=== PATIENT | male | born 1990 | race African-American/Black ===

== ENCOUNTER 2016-07-19 13:47 | Emergency (ER) | payer MEDICAID, OTHER ==
[~2016-07-19] VITALS: Ht 175.3 cm; Wt 85.3 kg
[2016-07-19 14:17] VITALS: BP 129/81
== END 2016-07-19 15:31 | disposition home or self-care (01) ==
LOC: ER 13:47
DX: N34.2 Other urethritis (principal)

== ENCOUNTER 2020-03-27 10:21 | Emergency (ER) | payer MEDICAID, OTHER ==
[~2020-03-27] VITALS: Ht 175.3 cm; Wt 79.8 kg
[2020-03-27 11:24] VITALS: BP 130/97
[2020-03-27] MEDS ORDERED: IBUPROFEN 800 MG TAB PO ONE (11:30)
== END 2020-03-27 12:45 | disposition home or self-care (01) ==
LOC: ER 10:21
DX: M54.2 Cervicalgia (principal); V43.52XA Car driver injured in collision with other type car in traffic accident, initial encounter; Y93.89 Activity, other specified; Y92.488 Other paved roadways as the place of occurrence of the external cause; Y99.8 Other external cause status
CPT/HCPCS: 72040; 72070; 72100

== ENCOUNTER 2020-10-26 13:28 | Emergency (ER) | payer MEDICAID ==
[~2020-10-26] VITALS: Ht 175.3 cm; Wt 82.6 kg
[2020-10-26 15:48] VITALS: BP 135/91
== END 2020-10-26 16:33 | disposition home or self-care (01) ==
LOC: ER 13:28
DX: S63.601A Unspecified sprain of right thumb, initial encounter (principal); X58.XXXA Exposure to other specified factors, initial encounter; Y93.89 Activity, other specified; Y92.89 Other specified places as the place of occurrence of the external cause; Y99.8 Other external cause status
CPT/HCPCS: 73130